=== PATIENT | female | born 1955 | race Caucasian/White ===

== ENCOUNTER 2018-02-01 15:46 | Emergency (ER) | payer BC, MEDICAID ==
[~2018-02-01] VITALS: Ht 162.6 cm; Wt 63.5 kg
--- NOTE | 2018-02-01 16:02 | NUR ---
RECIEVED PATIENT TO ED BED 14, PT NOTED EATING CHIPS WHILE LAYING DOWN IN HER BED WITHOUT ANY DIFFICULTY, NO CHOKING NOTED. PT ADVISED TO STOP EATING FOR NOW AND WAIT UNTIL THE DOCTOR SEEN HER. PT VERBALIZED UNDERSTAINDING. PT IS A/OX4, PT WAS [id number] FROM HER THERAPIST'S OFFICE FOR WEAK AND DIZZY, STARTED 2-3 HRS AGO. HER THERAPIST CALLED FIRE DEPT. PT SAID SHE FEELS MUCH BETTER NOW. SHE DENIED CHEST PAIN OR SOB. GOWNED AND PLACED ON CONT CARDIAC AND POX MONITORING. ALL NEEDS ARE ATTENDED, KEPT WARM AND COMFORTABLE. PENDING ER MD EVALUATION
[2018-02-01] MEDS ORDERED: IV NS 0.9% 1,000 ML BAG IV ONE (17:30)
[2018-02-01 17:49] LABS: BASOPHILS # (AUTO) 0.2 /CMM (0.0-0.2); BASOPHILS % (AUTO) 2.1 % (0.0-2.0); EOSINOPHILS % (AUTO) 0.6 % (0.0-6.0); HEMATOCRIT 37 % (33-45); HEMOGLOBIN 12.8 g/dL (11.5-14.8); LYMPHOCYTES # (AUTO) 2.2 /CMM (0.8-4.8); LYMPHOCYTES % (AUTO) 25.2 % (20.0-44.0); MEAN CORPUSCULAR HGB CONC 34 g/dl (31.0-36.0); MEAN CORPUSCULAR VOLUME 92 fL (82-100); MONOCYTES # (AUTO) 0.7 /CMM (0.1-1.30); MONOCYTES % (AUTO) 8.2 % (2.0-12.0); NEUTROPHILS # (AUTO) 5.4 /CMM (1.8-8.9); NEUTROPHILS % (AUTO) 63.9 % (43.0-81.0); PLATELET COUNT (AUTO) 161 /CMM (150-450); RDW COEFFICIENT OF VARIATION 11.9 (11.5-15.0); RED BLOOD CELL COUNT(AUTO) 4.05 MIL/uL (4.0-5.2); WHITE BLOOD COUNT (AUTO) 8.6 K/uL (4.3-11.0)
[2018-02-01 17:59] LABS: CALCIUM, SERUM 9.1 mg/dL (8.5-10.1); CREATININE 0.7 mg/dL (0.6-1.3); POTASSIUM 3.7 mmol/L (3.5-5.1)
[2018-02-01 18:46] LABS: THYROID STIMULATING HORMONE 1.188 uIU/mL (0.358-3.74)
[2018-02-01 20:07] VITALS: BP 115/56
== END 2018-02-01 20:08 | disposition home or self-care (01) ==
LOC: ER 15:47
DX: R53.1 Weakness (principal); E86.0 Dehydration; F31.9 Bipolar disorder, unspecified; Z88.2 Allergy status to sulfonamides
CPT/HCPCS: 36415; 71045; 80048; 80305; 84443; 85025; 93005; 96360; 99285; A4606; J7030; Z7610